=== PATIENT | female | born 1995 | race Hispanic/Latino ===

== ENCOUNTER 2019-09-25 18:58 | Inpatient (IN) | payer OTHER ==
[~2019-09-25] VITALS: Ht 160 cm; Wt 147.4 kg
[2019-09-25 19:30] LABS: BASOPHILS % (AUTO) 0.7 % (0.0-5.0); EOSINOPHILS % (AUTO) 0.8 % (0.0-8.0); HEMATOCRIT 23.8 % (36-48); LYMPHOCYTES % (AUTO) 17.8 % (21.0-51.0); MEAN CORPUSCULAR HEMOGLOBIN 17.2 pg (27.0-33.0); MEAN CORPUSCULAR HGB CONC 29.2 g/dL (32.0-36.0); MEAN CORPUSCULAR VOLUME 58.8 fL (79-99); NEUTROPHILS % (AUTO) 74.7 % (40.0-77.0); NUCLEATED RED BLOOD CELLS 0.1 % (0.0-0.19); PLATELET COUNT (AUTO) 293 K/uL (130-400); RED BLOOD CELL COUNT(AUTO) 4.05 MIL/uL (4.00-5.50)
[2019-09-25 19:43] LABS: CREATININE 0.8 mg/dL (0.5-1.5); POTASSIUM 3.9 mmol/L (3.5-5.1)
[2019-09-25 19:45] LABS: INR 0.96 (0.85-1.15); PARTIAL THROMBOPLASTIN TIME 22.9 SEC (26.3-35.5); PROTHROMBIN TIME 10.1 SEC (9.6-11.6)
[2019-09-25 19:47] LABS: ALBUMIN 3.3 g/dL (3.5-5.0); BILIRUBIN,TOTAL 0.2 mg/dL (0.2-1.0); TOTAL PROTEIN, SERUM 7.3 g/dL (6.0-8.3)
[2019-09-25 20:00] LABS: FERRITIN 3 ng/mL (15-150); IRON, SERUM 12 mcg/dL (50-170)
[2019-09-25] MEDS ORDERED: ACETAMINOPHEN 325 MG TAB PO PRN ×2 (20:45)
[2019-09-25] MEDS ORDERED: ONDANSETRON HCL 4 MG/2 ML VIAL IV PRN (20:45)
[2019-09-25] MEDS ORDERED: LACTULOSE 20 GM/30 ML UDCUP PO PRN (20:45)
[2019-09-25] MEDS: FAMOTIDINE 20MG TAB 20 MG TAB PO SCH (21:00)
[2019-09-25] MEDS ORDERED: FAMOTIDINE 20MG TAB 20 MG TAB ONE (23:11)
--- NOTE | 2019-09-25 23:30 | NUR ---
Patient received from ED: Patient came in via wheelchair accompanied by teacher of the handicapped with chief complaints of Dizziness, tired and lethargy and with abnormal labs with low hemoglobin 7.0. Patient had orders to transfuse 1 unit of PRBC pending. She has Saline lock on her right antecubital 20 gauge patent. Plan of care discussed with patient verbalizes understanding.
[2019-09-25 23:45] VITALS: BP 106/53
--- NOTE | 2019-09-26 00:46 | NUR ---
Blood was started at 0046: PRBC i unit started verified identity witness with mitchell Padilla RN. It was completed at 0310 with no transfusion reaction.
[2019-09-26] MEDS ORDERED: SODIUM CHLORIDE 0.9% 1000ML 1,000 ML IV ONE (01:30)
--- NOTE | 2019-09-26 03:30 | NUR ---
Activity: Patient up to the bathroom to void she claimed, " She felt dizzy because she's hungry had not eaten since yesterday> [place] and apple juice was given. Patient advice to eat.
[2019-09-26] MEDS ORDERED: TRAM50TA4 PO (03:58)
[2019-09-26 04:15] VITALS: BP 103/49
[2019-09-26 04:48] LABS: HEMATOCRIT 24.5 % (36-48)
[2019-09-26 06:45] LABS: HEMATOCRIT 24.1 % (36-48)
--- NOTE | 2019-09-26 07:30 | NUR ---
COMMUNICATION: DR. ESPINOZA CALLED TO INFORMED OF THE RESULT WAITING TO CALL BACK.
--- NOTE | 2019-09-26 07:45 | NUR ---
COMMUNICATION: Nohemi IGLESIAS NP CALLED BACK WAS INFORMED OF THE LAB RESULT HEMOGLOBIN 7.2 1 HOUR AFTER THE BLOOD TRANSFUSION AND AT 0700 HEMOGLOBIN RECHECK 7.0. sHE SAID JUST TO MINOTOR PATIENT AND WILL COME TO CHECK HER.
[2019-09-26 08:00] VITALS: BP 103/50
[2019-09-26] MEDS ORDERED: EPOETIN ALFA 10,000 UNIT/ML VIAL SQ SCH (08:30)
[2019-09-26] MEDS ORDERED: COMPOUND IV MISC 1 EACH IVSOLN MISC PRN (08:45)
[2019-09-26] MEDS: FAMOTIDINE 20MG TAB 20 MG TAB PO SCH ×2 (08:53→21:17)
[2019-09-26] MEDS ORDERED: FERROUS SULFATE 325 MG TABLET.DR PO SCH (09:00)
[2019-09-26] MEDS ORDERED: IRON SUCROSE COMPLEX IV SCH ×2 (09:00→10:00)
[2019-09-26] MEDS ORDERED: SODIUM CHLORIDE 0.9% IV SCH ×2 (09:00→10:00)
--- NOTE | 2019-09-26 11:21 | NUR ---
DC PLAN VISITED WITH PATIENT. PATIENT LIVES WITH SPOUSE. INDEPENDENT ABLE TO PERFORM ADL'S. PATIENT HAS NO SERVICES OR DME'S. FEELS SAFE TO RETURN HOME. Addendum: 09/26/19 at 1122 by TRISH AC RN CM Amended: Links added.
[2019-09-26 12:24] VITALS: BP 114/68
[2019-09-26 15:32] VITALS: BP 93/58
[2019-09-26 19:19] VITALS: BP 107/45
[2019-09-26 22:36] LABS: HEMATOCRIT 25.2 % (36-48)
[2019-09-26 23:58] VITALS: BP 114/56
[2019-09-27 03:27] VITALS: BP 110/49
[2019-09-27 05:28] LABS: BASOPHILS % (AUTO) 1.1 % (0.0-5.0); EOSINOPHILS % (AUTO) 2.2 % (0.0-8.0); HEMATOCRIT 26.2 % (36-48); LYMPHOCYTES % (AUTO) 19.6 % (21.0-51.0); MEAN CORPUSCULAR HEMOGLOBIN 18.2 pg (27.0-33.0); MEAN CORPUSCULAR HGB CONC 29.2 g/dL (32.0-36.0); MEAN CORPUSCULAR VOLUME 62.5 fL (79-99); MONOCYTES % (AUTO) 7.1 % (3.0-13.0); NUCLEATED RED BLOOD CELLS 0.4 % (0.0-0.19); PLATELET COUNT (AUTO) 256 K/uL (130-400); RED BLOOD CELL COUNT(AUTO) 4.19 MIL/uL (4.00-5.50); RED CELL DISTRIBUTION WIDTH 22.4 % (11.0-15.5)
[2019-09-27 05:45] LABS: CREATININE 0.9 mg/dL (0.5-1.5)
[2019-09-27 07:45] VITALS: BP 101/47
[2019-09-27] MEDS: FAMOTIDINE 20MG TAB 20 MG TAB PO SCH (08:31)
[2019-09-27 12:00] VITALS: BP 106/60
--- NOTE | 2019-09-27 13:30 | NUR ---
DR. WONG ROUNDED AND DISCHARGED PATIENT ON IRON TID AND VITAMIN C AND STOOL SOFTENER. PATIENT INSTRUCTED TO FOLLOW UP WITH HER PRIMARY CARE PROVIDER AND INDICATED HAVING FOLLOW UP APPOINTMENT ON SUNDAY, .
[2019-09-27] MEDS ORDERED: ASCO500C6 PO (13:52)
[2019-09-27] MEDS ORDERED: DOCU100T PO (13:52)
[2019-09-27] MEDS ORDERED: FERR325T22 PO (13:52)
[2019-09-27] MEDS ORDERED: FERROUS SULFATE 325 MG TABLET.DR PO SCH (14:00)
--- NOTE | 2019-09-27 15:15 | NUR ---
DISCHARGE INSTRUCTIONS GIVEN AND PATIENT VERBALIZED UNDERSTANDING INSTRUCTIONS GIVEN. PIV WAS REMOVED AND SITE US WNL. PATIENT WAS INSTRUCTED ON IMPORTANCE OF FOLLOW AN IRON RICH DIET AND TAKING VITAMIN C FOODS AND SUPPLEMENTS WITH MEALS. PT VERBALIZED UNDERSTANDING NEED TO FOLLOW UP WITH PRIMARY CARE DOCTOR SCHEDULED FOR SUNDAY.
--- NOTE | 2019-09-27 15:33 | NUR ---
PATIENT WAS TAKEN VIA W/C TO FAMILY VEHICLE AND WAS DISCHARGED TO HER MOTHER IN STABLE CONDITION. PATIENT DENIES ANY DIZZINESS AND DENIES ANY FURTHER HEADACHE.
== END 2019-09-27 15:33 | disposition home or self-care (01) | DRG 812 ==
LOC: EDH 18:58 → OBSVTOIN 20:38 → EDHIP 20:38 → WSH 23:30
PROVIDERS: ADMIT Internal Medicine; ATTEND Internal Medicine
PROC: 30233N1 Transfusion of Nonautologous Red Blood Cells into Peripheral Vein, Percutaneous Approach (ICD-10-PCS; principal; 2019-09-26)
DX: D62 Acute posthemorrhagic anemia (principal); Z68.43 Body mass index [BMI] 50.0-59.9, adult; D50.9 Iron deficiency anemia, unspecified; E66.01 Morbid (severe) obesity due to excess calories; E28.2 Polycystic ovarian syndrome; N92.0 Excessive and frequent menstruation with regular cycle
CPT/HCPCS: 36415; 80048; 80053; 81025; 82728; 83540; 85014; 85018; 85025; 85610; 85730; 86850; 86900; 86901; 86922; G0378; J0885; J1756; P9016

== ENCOUNTER 2021-05-04 07:47 | Emergency (ER) | payer OTHER ==
[~2021-05-04] VITALS: Ht 160 cm; Wt 160.6 kg
[~2021-05-04 07:47] MED LIST: ASCO500C6 PO; DOCU100T PO; FERR325T22 PO
[2021-05-04 08:23] LABS: BASOPHILS % (AUTO) 0.5 % (0.0-5.0); EOSINOPHILS % (AUTO) 1.3 % (0.0-8.0); HEMATOCRIT 29.1 % (36-48); MEAN CORPUSCULAR HGB CONC 29.2 g/dL (32.0-36.0); MEAN CORPUSCULAR VOLUME 75.4 fL (79-99); NEUTROPHILS % (AUTO) 74.8 % (40.0-77.0); PLATELET COUNT (AUTO) 239 K/uL (130-400); RED BLOOD CELL COUNT(AUTO) 3.86 MIL/uL (4.00-5.50); RED CELL DISTRIBUTION WIDTH 17.7 % (11.0-15.5); WHITE BLOOD COUNT (AUTO) 7.9 K/uL (4.8-10.8)
[2021-05-04 08:26] VITALS: BP 113/45
[2021-05-04 08:36] LABS: CREATININE 0.9 mg/dL (0.5-1.5); POTASSIUM 4.3 mmol/L (3.5-5.1)
[2021-05-04 08:40] LABS: BILIRUBIN,TOTAL 0.2 mg/dL (0.2-1.0); TOTAL PROTEIN, SERUM 6.8 g/dL (6.0-8.3)
[2021-05-04 08:43] LABS: APPEARANCE,URINE Clear (CLEAR); BILIRUBIN,URINE Negative (NEGATIVE); COLOR,URINE Yellow (YELLOW); GLUCOSE, URINE (UA) Negative (NEGATIVE); HCG,QUAL RESULT NEGATIVE (NEGATIVE); KETONES,URINE Negative (NEGATIVE); LEUKOCYTE ESTERASE ,URINE Negative (NEGATIVE); NITRATE,URINE Negative (NEGATIVE); OCCULT BLOOD,URINE Large (NEGATIVE); PROTEIN,URINE Negative (NEGATIVE); UROBILINOGEN,URINE 0.2 mg/dL (0.2-1.0)
[2021-05-04 08:56] LABS: BACTERIA,URINE Rare /HPF (None Seen); RBC,URINE 26-50 /HPF (0-1); SQUAMOUS EPITHELIAL CELL,UR Rare /HPF (0-2); WBC,URINE 0-1 /HPF (0-1)
[2021-05-04 09:51] VITALS: BP 107/60
[2021-05-04] MEDS ORDERED: LIDOCAINE HCL 2% VISCOUS 15 ML UDCUP ONE (10:03)
[2021-05-04] MEDS ORDERED: MAG/ALUM/SIMETH 30 ML UDCUP ONE (10:03)
[2021-05-04] MEDS ORDERED: MAG/ALUM/SIMETH 30 ML UDCUP PO ONE (10:15)
[2021-05-04 11:05] VITALS: BP 110/57
[2021-05-04] MEDS ORDERED: PANT20TA18 PO (11:31)
[2021-05-04] MEDS ORDERED: SUCR1TAB28 PO (11:31)
[2021-05-04 12:14] VITALS: BP 114/52
== END 2021-05-04 13:54 | disposition home or self-care (01) ==
LOC: EDH 07:47
DX: K29.70 Gastritis, unspecified, without bleeding (principal); Z79.899 Other long term (current) drug therapy
CPT/HCPCS: 36415; 80053; 81001; 81025; 83690; 85025

== ENCOUNTER → 2021-05-25 | Outpatient (CLI) | payer OTHER ==
[~2021-05-25] VITALS: Ht 5.1 cm; Wt 157.8 kg
[~2021-05-25] MED LIST changes: +PANT20TA18 PO; +SUCR1TAB28 PO
== END | disposition home or self-care (01) ==
LOC: DTH 15:16
PROVIDERS: ATTEND Surgery
DX: G47.33 Obstructive sleep apnea (adult) (pediatric) (principal); E66.01 Morbid (severe) obesity due to excess calories; K21.9 Gastro-esophageal reflux disease without esophagitis; E11.9 Type 2 diabetes mellitus without complications
CPT/HCPCS: 97802

== ENCOUNTER → 2021-06-06 | Outpatient (CLI) | payer OTHER ==
[2021-06-06 16:49] LABS: BASOPHILS % (AUTO) 0.3 % (0.0-5.0); EOSINOPHILS % (AUTO) 1.7 % (0.0-8.0); HEMATOCRIT 29.2 % (36-48); LYMPHOCYTES % (AUTO) 16.7 % (21.0-51.0); MEAN CORPUSCULAR HEMOGLOBIN 19.3 pg (27.0-33.0); MEAN CORPUSCULAR HGB CONC 27.4 g/dL (32.0-36.0); MEAN CORPUSCULAR VOLUME 70.5 fL (79-99); MONOCYTES % (AUTO) 7.6 % (3.0-13.0); NEUTROPHILS % (AUTO) 73.2 % (40.0-77.0); PLATELET COUNT (AUTO) 284 K/uL (130-400); RED BLOOD CELL COUNT(AUTO) 4.14 MIL/uL (4.00-5.50); WHITE BLOOD COUNT (AUTO) 9.2 K/uL (4.8-10.8)
[2021-06-06 17:05] LABS: HEMOGLOBIN A1C 6.3 % (4.0-6.0)
[2021-06-06 17:26] LABS: ALBUMIN 3.2 g/dL (3.5-5.0); BILIRUBIN,TOTAL 0.2 mg/dL (0.2-1.0); CREATININE 0.9 mg/dL (0.5-1.5); MAGNESIUM 1.9 mg/dL (1.80-2.40); POTASSIUM 3.6 mmol/L (3.5-5.1); THYROID STIMULATING HORMONE 1.11 uIU/mL (0.36-3.74); TOTAL PROTEIN, SERUM 6.9 g/dL (6.0-8.3)
== END | disposition home or self-care (01) ==
LOC: LAB 15:58
PROVIDERS: ATTEND Surgery
DX: G47.33 Obstructive sleep apnea (adult) (pediatric) (principal); E66.01 Morbid (severe) obesity due to excess calories; K21.9 Gastro-esophageal reflux disease without esophagitis; E11.9 Type 2 diabetes mellitus without complications
CPT/HCPCS: 36415; 80053; 80061; 82306; 82607; 82746; 83036; 83540; 83735; 84207; 84425; 84439; 84443; 84446; 84481; 84590; 84630; 85025